=== PATIENT | female | born 1975 | race Two or more races ===

== ENCOUNTER 2022-09-30 19:00 | Emergency (ER) | payer OTHER, MEDICAID, MEDICARE ==
[~2022-09-30] VITALS: Ht 162.6 cm; Wt 75.0 kg
[2022-09-30 19:04] VITALS: O2SAT 100
[2022-09-30 22:28] VITALS: BP 142/78; PULSE 66; RESP 18; TEMP 98.6
== END 2022-09-30 22:28 ==
LOC: ER 19:00
DX: M79.10 Myalgia, unspecified site (principal); R11.0 Nausea; F41.9 Anxiety disorder, unspecified; I10 Essential (primary) hypertension
CPT/HCPCS: 93005; 99283